=== PATIENT | female | born 1955 | race Caucasian/White ===

== ENCOUNTER 2018-03-09 09:04 | Emergency (ER) | payer BC, MEDICAID, MEDICARE ==
[2018-03-09] MEDS ORDERED: traMADol 50 MG Tab PO ONE (10:10)
--- NOTE | 2018-03-09 10:12 | EDM.PDOC ---
ED HPI GENERAL MEDICAL PROBLEM - General Chief Complaint: Lower Extremity Injury/Pain Stated Complaint: LEFT KNEE Time Seen by Provider: 03/09/18 09:45 Source of Information: Reports: Patient, Family History Limitations: Reports: No Limitations - History of Present Illness INITIAL COMMENTS - FREE TEXT/NARRATIVE: Mariangel comes into [facility] ED with acute onset of posterior L knee pain while ambulating this am. The L knee "popped" in this location, and she has had problems with wt bearing since. There is no hx of swelling, injury, or splinting. She has tried no meds. L knee Pain Score (Numeric/FACES): 10 - Related Data Allergies Allergy/AdvReac Type Severity Reaction Status Date / Time celecoxib [From Celebrex] Allergy Swelling Verified 03/09/18 09:13 ibuprofen Allergy Swelling Verified 03/09/18 09:13 dye Allergy Swelling Uncoded 03/09/18 09:13 Home Meds: Home Meds Brimonidine [Alphagan P 0.15% Ophth Soln] 1 drop EYEBOTH TID 08/05/16 [History] Citalopram Hydrobromide [Celexa] 20 mg PO BEDTIME 08/05/16 [History] Cyclobenzaprine HCl 10 mg PO BEDTIME PRN 08/05/16 [History] Dextran/Hypromellose/Glycerin [Genteal Tears 0.1%-0.2%-0.3%] 1 drop OP ASDIRECTED PRN 08/05/16 [History] Gabapentin [Neurontin] 300 mg PO TID 08/05/16 [History] Latanoprost [Xalatan 0.005% Ophth Soln] 1 drop EYEBOTH BEDTIME 08/05/16 [History ] Naproxen Sodium [Aleve] 220 mg PO BID PRN 08/05/16 [History] Omeprazole 20 mg PO BEDTIME 08/05/16 [History] Vit A/Vit C/Vit E/Zinc/Copper [Preservision] 1 cap PO BID 08/05/16 [History] traMADol [Ultram] 50 mg PO Q4H PRN #20 tab 03/09/18 [Rx] Past Medical History HEENT History: Reports: Glaucoma, Impaired Vision Gastrointestinal History: Reports: GERD Genitourinary History: Reports: Urinary Incontinence, Other (See Below) Other Genitourinary History: occ leaking of urine 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 History: Musculoskeletal History: Reports: Arthritis, Fracture, Other (See Below) Other Musculoskeletal History: hx fx nose, R gt toe Neurological History: Reports: Brain Injury, Concussion Psychiatric History: Reports: Depression Endocrine/Metabolic History: Reports: Obesity/BMI 30+ - Infectious Disease History Infectious Disease History: Reports: Measles - Past Surgical History HEENT Surgical History: Reports: Adenoidectomy, Laser Surgery, Tonsillectomy Other HEENT Surgeries/Procedures: laser surg bilat eyes GI Surgical History: Reports: None Female Surgical History: Reports: Hysterectomy, Salpingo-Oophorectomy Musculoskeletal Surgical History: Reports: Carpal Tunnel, Knee Replacement Other Musculoskeletal Surgeries/Procedures:: R knee replacment, bilat carpal tunnel, R heel surgery Social & Family History - Family History Family Medical History: Noncontributory - Tobacco Use Smoking Status *Q: Former Smoker Years of Tobacco use: 10 Used Tobacco, but Quit: Yes Month/Year Tobacco Last Used: sep - Caffeine Use Caffeine Use: Reports: Coffee - Recreational Drug Use Recreational Drug Use: No Review of Systems - Review of Systems Review Of Systems: See Below Constitutional: Reports: No Symptoms Eyes: Reports: No Symptoms Ears: Reports: No Symptoms Nose: Reports: No Symptoms Mouth/Throat: Reports: No Symptoms Respiratory: Reports: No Symptoms Cardiovascular: Reports: No Symptoms GI/Abdominal: Reports: No Symptoms Genitourinary: Reports: No Symptoms Musculoskeletal: Reports: Leg Pain (sharp pain L posterior knee and proximal calve) Skin: Reports: No Symptoms Neurological: Reports: No Symptoms Psychiatric: Reports: No Symptoms ED EXAM, GENERAL - Physical Exam Exam: See Below Exam Limited By: Physical Impairment General Appearance: Alert, WD/WN, Anxious, Mild Distress Head: Normocephalic Neck: Normal Inspection, Supple, Non-Tender Respiratory/Chest: Lungs Clear Cardiovascular: Regular Rate, Rhythm Back Exam: Normal Inspection Extremities: Normal Inspection, No Pedal Edema, Limited Range of Motion ( guarding L knee, no joint effusion, patella well seated, no lax to maneuver; tendeness in popliteal fossa and proximal midline calve, no discernable swelling or ecchymoses) Neurological: Alert, Oriented, CN II-XII Intact, No Motor/Sensory Deficits Psychiatric: Normal Affect, Anxious Skin Exam: Warm, Dry, Intact, Normal Color, No Rash Lymphatic: No Adenopathy Course - Vital Signs Text/Narrative:: Following assessment at the [facility] ED, I administered a Tramadol 50 mg po, and sent patient to diagnostic imaging for plain filsm of L knee and L ext US. findings for a large fluid collection around the knee and patella, suspicious for a ruptured Bakers Cyst. Last Recorded V/S: Last Vital Signs Temp 36.3 C 03/09/18 09:08 Pulse 89 03/09/18 09:08 Resp 20 03/09/18 09:08 BP 142/82 H 03/09/18 09:08 Pulse Ox 100 03/09/18 09:08 - Orders/Labs/Meds Orders: Active Orders 24 hr Category Date Time Status Extremity Non Vascular Lt [US] Stat Exams 03/09/18 10:14 Taken Meds: Medications Discontinued Medications Generic Name Dose Route Start Last Admin Trade Name Freq PRN Reason Stop Dose Admin Tramadol HCl 50 mg 03/09/18 10:10 03/09/18 10:23 Ultram PO 03/09/18 10:11 50 mg ONETIME ONE Administration Departure - Departure Time of Disposition: 11:29 Disposition: Home, Self-Care 01 Condition: Fair Clinical Impression: Knee pain, acute Qualifiers: Laterality: left Qualified Code(s): M25.562 - Pain in left knee - Discharge Information Prescriptions: traMADol [Ultram] 50 mg PO Q4H PRN #20 tab PRN Reason: Breakthrough Pain Referrals: PCP,None [Primary Care Provider] - Forms: ED Department Discharge - Problem List & Annotations (1) Knee pain, acute SNOMED Code(s): 17911327, 342015043 Code(s): M25.569 - PAIN IN UNSPECIFIED KNEE Status: Acute Current Visit: Yes Annotation/Comment:: I dispensed Tramadol 50 mg q 4hrs prn for pain, RICE , crutches with touch wt bearing, and consider Ortho consult regarding further managment. Qualifiers: Laterality: left Qualified Code(s): M25.562 - Pain in left knee - Problem List Review Problem List Initiated/Reviewed/Updated: Yes - My Orders Last 24 Hours: My Active Orders 03/09/18 10:14 Extremity Non Vascular Lt [US] Stat - Assessment/Plan Last 24 Hours: My Active Orders 03/09/18 10:14 Extremity Non Vascular Lt [US] Stat Plan: Follow up with Orthopedics.
--- NOTE | 2018-03-09 11:26 | CR ---
INDICATION: Posterior popliteal and proximal calf pain, possible Bakers cyst or plantaris rupture, doubt internal derangement, no injury history. LEFT KNEE: Three views of the left knee were obtained 03/09/2018 and revealed narrowing of the medial femorotibial joint space with mild hypertrophic degenerative changes off the patella and femur at the patellofemoral joint. Medial patellofemoral joint space narrowing is mild also. Hypertrophic changes are noted at the intercondylar spines and off the medial femur and only very minimally laterally off the tibia. There is some prominence at the suprapatellar bursa, raising question of a knee joint effusion. This should be correlated clinically, however. A fracture or dislocation was not identified. IMPRESSION: 1. Osteoarthritis with joint space loss, as noted above. 2. Possible small knee joint effusion. MTDD
[2018-03-09 12:13] VITALS: BP 145/58
--- NOTE | 2018-03-09 13:28 | US ---
INDICATION: Sudden onset of left popliteal pain while walking, possible Carver s cyst or ruptured plantaris tendon, doubt internal derangement. EXTREMITY, NONVASCULAR, ULTRASOUND, LEFT KNEE AREA: Multiple ultrasonic images were obtained 03/09/2018. No comparisons were available. Collection of fluid is noted posteromedially in the popliteal fossa, measuring 5.9 x 1 cm. Medial and lateral collections of fluid are smaller in size adjacent to the patella. Medially, the fluid collection measured 3.35 x 1.6 cm x 3.4 mm and is located somewhat anteriorly medial to the patella and adjacent to the patella. Lateral to the patella anteriorly, there are two collections, which appear to be connected by a channel, measuring approximately 4 x 4.8 cm and 4.89 x 0.7 x 3 cm. Etiology is indeterminate. However, the possibility of a large Bakers cyst with rupture and flow of fluid into these spaces would be considerations. No solid masses could be identified. The fluid collections are largely anechoic, suggesting simple fluid rather than hemorrhage or hematoma. This should be correlated clinically. Aspiration of these sites could be of further diagnostic benefit, as well as MRI , as felt to be clinically necessary. Report was called to Dr. Dc at approximately 1121 hours on 03/09/2018. DAKOTAH
== END 2018-03-09 11:58 | disposition home or self-care (01) ==
LOC: FB.ED 09:04
DX: M25.562 Pain in left knee (principal); K21.9 Gastro-esophageal reflux disease without esophagitis; M19.90 Unspecified osteoarthritis, unspecified site; Z87.891 Personal history of nicotine dependence; Z79.899 Other long term (current) drug therapy; Z88.1 Allergy status to other antibiotic agents; Z88.6 Allergy status to analgesic agent; Z91.09 Other allergy status, other than to drugs and biological substances
CPT/HCPCS: 73562; 76881; 99283; A9270

== ENCOUNTER 2020-04-14 07:28 | Emergency (ER) | payer MEDICARE ==
[2020-04-14] MEDS ORDERED: LORazepam 2 MG/ML SDV IVPUSH ONE (07:50)
[2020-04-14] MEDS ORDERED: Sodium Chloride 0.9% 1,000 ML IV ONE (07:51)
--- NOTE | 2020-04-14 07:57 | EDM.PDOC ---
ED HPI GENERAL MEDICAL PROBLEM - General Chief Complaint: General Time Seen by Provider: 04/14/20 07:40 Source of Information: Reports: Patient History Limitations: Reports: No Limitations - History of Present Illness INITIAL COMMENTS - FREE TEXT/NARRATIVE: c/o anxiety pt has h/o anxiety and panic attacks also h/o 30 pack smoking hx altho no prior CV concerns at midnight pt said she felt like she had worms crawling all over her skin not able to sleep denied pain, by morning did develop sob, shakiness in her hands, tingling in her hands she thinks she may be having an allergic reaction no cp, no n/v, no f/c/d - Related Data Allergies Allergy/AdvReac Type Severity Reaction Status Date / Time celecoxib [From Celebrex] Allergy Swelling Verified 07/12/18 20:18 ibuprofen Allergy Swelling Verified 07/12/18 20:18 dye Allergy Swelling Uncoded 03/09/18 09:13 Home Meds: Home Meds Citalopram Hydrobromide [Celexa] 20 mg PO BEDTIME 08/05/16 [History] Cyclobenzaprine HCl 10 mg PO BEDTIME PRN 08/05/16 [History] Dextran/Hypromellose/Glycerin [Genteal Tears 0.1%-0.2%-0.3%] 1 drop OP ASDIRECTED PRN 08/05/16 [History] Gabapentin [Neurontin] 600 mg PO BEDTIME 08/05/16 [History] Naproxen Sodium [Aleve] 440 mg PO TID PRN 08/05/16 [History] Omeprazole 20 mg PO ACBREAKFAST 08/05/16 [History] Vit A/Vit C/Vit E/Zinc/Copper [Preservision] 1 cap PO BID 08/05/16 [History] Gabapentin [Neurontin] 200 mg PO TIDMEALS 06/02/18 [History] Past Medical History HEENT History: Reports: Cataract, Glaucoma, Impaired Vision Cardiovascular History: Reports: None, Blood Clots/VTE/DVT Respiratory History: Reports: None Gastrointestinal History: Reports: GERD Genitourinary History: Reports: Renal Calculus, Urinary Incontinence, Other (See Below) Other Genitourinary History: occ leaking of urine 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: Musculoskeletal History: Reports: Arthritis, Fracture, RA, Other (See Below) Other Musculoskeletal History: hx fx nose, R gt toe Neurological History: Reports: Brain Injury, Concussion Psychiatric History: Reports: Depression Endocrine/Metabolic History: Reports: Obesity/BMI 30+ Hematologic History: Reports: None Immunologic History: Reports: None Oncologic (Cancer) History: Reports: None Dermatologic History: Reports: None - Infectious Disease History Infectious Disease History: Reports: None, Measles - Past Surgical History Head Surgeries/Procedures: Reports: None HEENT Surgical History: Reports: Adenoidectomy, Laser Surgery, Tonsillectomy Other HEENT Surgeries/Procedures: laser surg bilat eyes Cardiovascular Surgical History: Reports: None GI Surgical History: Reports: None Female Surgical History: Reports: Hysterectomy, Salpingo-Oophorectomy Musculoskeletal Surgical History: Reports: Carpal Tunnel, Knee Replacement Other Musculoskeletal Surgeries/Procedures:: R knee replacment, bilat carpal tunnel, R heel surgery Social & Family History - Family History Family Medical History: Noncontributory - Caffeine Use Caffeine Use: Reports: Coffee Other Caffeine Use: decaf ED ROS GENERAL - Review of Systems Review Of Systems: See Below Constitutional: Reports: No Symptoms HEENT: Reports: No Symptoms Respiratory: Reports: Shortness of Breath Cardiovascular: Reports: No Symptoms Endocrine: Reports: No Symptoms GI/Abdominal: Reports: No Symptoms : Reports: No Symptoms Musculoskeletal: Reports: No Symptoms Skin: Reports: No Symptoms Neurological: Reports: Tingling, Tremors Psychiatric: Reports: No Symptoms Hematologic/Lymphatic: Reports: No Symptoms Immunologic: Reports: No Symptoms ED EXAM, GENERAL - Physical Exam Exam: See Below Exam Limited By: No Limitations General Appearance: Alert, WD/WN, Mild Distress, Other (as I walked into room, pt was visibly anxious, hyperventilating, fanning her face, hands were shaking, voice was tremulous, she did relax as I spoke to her) Eye Exam: Bilateral Eye: EOMI, PERRL Ears: Hearing Grossly Normal Nose: Normal Inspection, Normal Mucosa, No Blood Throat/Mouth: Normal Inspection, Normal Lips, No Airway Compromise Head: Atraumatic, Normocephalic Neck: Normal Inspection, Supple, Non-Tender, Full Range of Motion. No: Lymphadenopathy (R), Lymphadenopathy (L) Respiratory/Chest: No Respiratory Distress, Lungs Clear, Normal Breath Sounds, No Accessory Muscle Use, Chest Non-Tender Cardiovascular: Regular Rate, Rhythm, No Edema, No Gallop, No Murmur, No Rub GI/Abdominal: Soft, Non-Tender, No Distention, No Mass Back Exam: Normal Inspection, Full Range of Motion. No: CVA Tenderness (R), CVA Tenderness (L) Extremities: Normal Inspection, Normal Range of Motion, No Pedal Edema Neurological: Alert, Oriented, CN II-XII Intact, No Motor/Sensory Deficits Psychiatric: Anxious Skin Exam: Warm, Dry, Intact, Normal Color, No Rash Lymphatic: No Adenopathy Course - Vital Signs Last Recorded V/S: Last Vital Signs Temp 36.6 C 04/14/20 07:45 Pulse 97 04/14/20 07:45 Resp 20 04/14/20 07:45 BP 147/75 H 04/14/20 07:45 Pulse Ox 99 04/14/20 07:45 - Orders/Labs/Meds Orders: Active Orders 24 hr Category Date Time Status EKG Documentation Completion [RC] ASDIRECTED Care 04/14/20 07:49 Active Sodium Chloride 0.9% [Normal Saline] 1,000 ml Med 04/14/20 10:45 Active IV ASDIRECTED Sodium Chloride 0.9% [Saline Flush] Med 04/14/20 10:25 Active 10 ml FLUSH ASDIRECTED PRN EKG 12 Lead [EK] Routine Ther 04/14/20 07:48 Ordered Medication Orders Sodium Chloride (Normal Saline) 1,000 mls @ 999 mls/hr IV ASDIRECTED VONNIE Last Admin: 04/14/20 09:45 Dose: 999 mls/hr Documented by: CURT Sodium Chloride (Saline Flush) 10 ml FLUSH ASDIRECTED PRN PRN Reason: IV Use Last Admin: 04/14/20 08:45 Dose: 10 ml Documented by: UCRT Labs: Laboratory Tests 04/14/20 04/14/20 04/14/20 Range/Units 08:00 08:00 08:00 WBC 8.7 (4.5-12.0) X10-3/uL RBC 4.86 (3.23-5.20) x10(6)uL Hgb 13.6 (11.5-15.5) g/dL Hct 42.5 (30.0-51.3) % MCV 87.5 (80-96) fL MCH 28.0 (27.7-33.6) pg MCHC 32.0 L (32.2-35.4) g/dL RDW 13.3 (11.5-15.5) % Plt Count 293 (125-369) X10(3)uL MPV 8.5 (7.4-10.4) fL Neut % (Auto) 43.8 L (46-82) % Lymph % (Auto) 42.5 H (13-37) % Winona % (Auto) 10.3 (4-12) % Eos % (Auto) 3 (1.0-5.0) % Baso % (Auto) 1 (0-2) % Neut # (Auto) 3.8 (1.6-8.3) # Lymph # (Auto) 3.7 (0.6-5.0) # Winona # (Auto) 0.9 (0.0-1.3) # Eos # (Auto) 0.2 (0.0-0.8) # Baso # (Auto) 0.1 (0.0-0.2) # Sodium 137 (135-145) mmol/L Potassium 4.7 (3.5-5.3) mmol/L Chloride 100 (100-110) mmol/L Carbon Dioxide 25 (21-32) mmol/L BUN 21 H D (7-18) mg/dL Creatinine 1.0 (0.55-1.02) mg/dL Est Cr Clr Drug Dosing TNP Estimated GFR (MDRD) 56 L (>60) BUN/Creatinine Ratio 21.0 H (9-20) Glucose 101 (80-116) mg/dL Calcium 9.8 (8.6-10.2) mg/dL Total Bilirubin 0.3 (0.1-1.3) mg/dL AST 18 D (5-25) IU/L ALT 26 D (12-36) U/L Alkaline Phosphatase 71 (56-112) IU/L Troponin I 27.3 (4.0-60.3) pg/mL C-Reactive Protein 1.0 H (0.5-0.9) mg/dL Total Protein 8.0 (6.0-8.0) g/dL Albumin 3.9 (3.2-4.6) g/dL Globulin 4.1 g/dL Albumin/Globulin Ratio 1.0 Urine Color (YELLOW) Urine Appearance (CLEAR) Urine pH (5.0-6.5) Ur Specific Flanagan (1.010-1.025) Urine Protein (NEGATIVE) mg/dL Urine Glucose (UA) (NORMAL) mg/dL Urine Ketones (NEGATIVE) mg/dL Urine Occult Blood (NEGATIVE) Urine Nitrite (NEGATIVE) Urine Bilirubin (NEGATIVE) Urine Urobilinogen (NEGATIVE) mg/dL Ur Leukocyte Esterase (NEGATIVE) Urine RBC (0-5) Urine WBC (0-5) 20/ Range/Units 10:56 WBC (4.5-12.0) X10-3/uL RBC (3.23-5.20) x10(6)uL Hgb (11.5-15.5) g/dL Hct (30.0-51.3) % MCV (80-96) fL MCH (27.7-33.6) pg MCHC (32.2-35.4) g/dL RDW (11.5-15.5) % Plt Count (125-369) X10(3)uL MPV (7.4-10.4) fL Neut % (Auto) (46-82) % Lymph % (Auto) (13-37) % Winona % (Auto) (4-12) % Eos % (Auto) (1.0-5.0) % Baso % (Auto) (0-2) % Neut # (Auto) (1.6-8.3) # Lymph # (Auto) (0.6-5.0) # Winona # (Auto) (0.0-1.3) # Eos # (Auto) (0.0-0.8) # Baso # (Auto) (0.0-0.2) # Sodium (135-145) mmol/L Potassium (3.5-5.3) mmol/L Chloride (100-110) mmol/L Carbon Dioxide (21-32) mmol/L BUN (7-18) mg/dL Creatinine (0.55-1.02) mg/dL Est Cr Clr Drug Dosing Estimated GFR (MDRD) (>60) BUN/Creatinine Ratio (9-20) Glucose (80-116) mg/dL Calcium (8.6-10.2) mg/dL Total Bilirubin (0.1-1.3) mg/dL AST (5-25) IU/L ALT (12-36) U/L Alkaline Phosphatase (56-112) IU/L Troponin I (4.0-60.3) pg/mL C-Reactive Protein (0.5-0.9) mg/dL Total Protein (6.0-8.0) g/dL Albumin (3.2-4.6) g/dL Globulin g/dL Albumin/Globulin Ratio Urine Color Yellow (YELLOW) Urine Appearance Clear (CLEAR) Urine pH 7.0 H (5.0-6.5) Ur Specific Flanagan 1.005 L (1.010-1.025) Urine Protein Negative (NEGATIVE) mg/dL Urine Glucose (UA) Normal (NORMAL) mg/dL Urine Ketones Negative (NEGATIVE) mg/dL Urine Occult Blood Negative (NEGATIVE) Urine Nitrite Negative (NEGATIVE) Urine Bilirubin Negative (NEGATIVE) Urine Urobilinogen Normal (NEGATIVE) mg/dL Ur Leukocyte Esterase Negative (NEGATIVE) Urine RBC Not seen (0-5) Urine WBC Not seen (0-5) Meds: Medications Generic Name Dose Route Start Last Admin Trade Name Freq PRN Reason Stop Dose Admin Sodium Chloride 1,000 mls @ 999 mls/hr 04/14/20 10:45 04/14/20 09:45 Normal Saline IV 999 mls/hr ASDIRECTED VONNIE Administration Sodium Chloride 10 ml 04/14/20 10:25 04/14/20 08:45 Saline Flush FLUSH 10 ml ASDIRECTED PRN Administration IV Use Discontinued Medications Generic Name Dose Route Start Last Admin Trade Name Freq PRN Reason Stop Dose Admin Sodium Chloride 1,000 mls @ 999 mls/hr 04/14/20 07:51 04/14/20 08:26 Normal Saline IV 04/14/20 08:51 999 mls/hr .BOLUS ONE Administration Lorazepam 1 mg 04/14/20 07:50 04/14/20 08:21 Ativan IVPUSH 04/14/20 07:51 1 mg ONETIME ONE Administration - Re-Assessments/Exams Free Text/Narrative Re-Assessment/Exam: 04/14/20 11:40 labs neg except inc'd BUN, did void after 1+ liter of fluid, urine not concentrated w/u neg anxiety and mild panic attack appeared to drive sxs Departure - Departure Time of Disposition: 11:38 Disposition: Home, Self-Care 01 Condition: Good Clinical Impression: Moderate dehydration, Anxiety - Discharge Information *PRESCRIPTION DRUG MONITORING PROGRAM REVIEWED*: Not Applicable *COPY OF PRESCRIPTION DRUG MONITORING REPORT IN PATIENT JACQUIE: Not Applicable Instructions: Rehydration, Adult Referrals: PCP,None [Primary Care Provider] - Forms: ED Department Discharge Additional Instructions: Continue current meds. Maintain fluids. Drink at least 1.5 liters daily when indoors, 2.5 liters when spending part of the day outdoors. See your doctor in 3-4 days for further evaluation and recommendations. Sepsis Event Note (ED) - Evaluation Sepsis Screening Result: No Definite Risk - Focused Exam Vital Signs: Vital Signs Temp Pulse Resp BP Pulse Ox 04/14/20 07:45 36.6 C 97 20 147/75 H 99 - My Orders Last 24 Hours: My Active Orders 04/14/20 07:48 EKG 12 Lead [EK] Routine 04/14/20 07:49 EKG Documentation Completion [RC] ASDIRECTED 04/14/20 10:25 Sodium Chloride 0.9% [Saline Flush] 10 ml FLUSH ASDIRECTED PRN 04/14/20 10:45 Sodium Chloride 0.9% [Normal Saline] 1,000 ml IV ASDIRECTED - Assessment/Plan Last 24 Hours: My Active Orders 04/14/20 07:48 EKG 12 Lead [EK] Routine 04/14/20 07:49 EKG Documentation Completion [RC] ASDIRECTED 04/14/20 10:25 Sodium Chloride 0.9% [Saline Flush] 10 ml FLUSH ASDIRECTED PRN 04/14/20 10:45 Sodium Chloride 0.9% [Normal Saline] 1,000 ml IV ASDIRECTED
[2020-04-14] MEDS ORDERED: Sodium Chloride 0.9% 10 ML Syringe FLUSH PRN (10:25)
[2020-04-14] MEDS ORDERED: Sodium Chloride 0.9% 1,000 ML IV SCH (10:45)
[2020-04-14 19:02] VITALS: BP 127/48; PULSE 74
== END 2020-04-14 12:05 | disposition home or self-care (01) ==
LOC: FB.ED 07:28
DX: E86.0 Dehydration (principal); F41.9 Anxiety disorder, unspecified; K21.9 Gastro-esophageal reflux disease without esophagitis; F32.9 Major depressive disorder, single episode, unspecified; E66.9 Obesity, unspecified; Z79.899 Other long term (current) drug therapy; Z88.6 Allergy status to analgesic agent; Z91.048 Other nonmedicinal substance allergy status
CPT/HCPCS: 36415; 80053; 81001; 84484; 85025; 86140; 93005; 96361; 96374; 99285-25; J2060; J7030